=== PATIENT | female | born 1980 | race Caucasian/White ===

== ENCOUNTER 2025-05-24 07:41 | Emergency (ER) | payer BC, SELFPAY ==
--- NOTE | ~2025-05-24 | XR_ITS ---
EXAMINATION: XR LUMBOSACRAL SPINE CLINICAL INFORMATION: back pain COMPARISON: None available. TECHNIQUE: AP and lateral views FINDINGS: Levoconvex curvature. Endplate sclerosis marginal osteophyte formation and decreased intervertebral disc height at L4-5 and to a lesser extent L5-S1. Bilateral facet joint hypertrophy as well as and that on the right side at L4-5 and L5-S1. Spina bifida occulta S1, congenital. No acute cortical disruption. No gross malalignment. Sclerosis and the sacroiliac joints bilaterally. XR/XR lumbar spine 2-3V IMPRESSION: Spondylosis L4-5 and L5-S1 and scoliosis. Electronically signed by: Justino Bridges MD 05/24/2025 08:25 AM EDT
[2025-05-24 07:44] VITALS: BP 142/88; PULSE 88; RESP 12; TEMP 36.5; O2SAT 98; BMI 23.7
--- NOTE | 2025-05-24 08:09 | ED.BACK ---
HPI - Back Pain/Injury General Chief Complaint: Back Pain/Injury Stated Complaint: Back Pain Time Seen by Provider: 05/24/25 08:05 Source: patient Mode of arrival: ambulatory Limitations: no limitations History of Present Illness ED Provider: Jessie SOTO Narrative: Patient seeks medical attention in the emergency department today for evaluation of back pain. She is accompanied by her significant other. She reports today for started she was doing a lot of weeding and yard work bending over and taking care of the yard. She woke up the next day with the back pain. She did think it could be related to this that although. She spent the weekend at a birthday alliance party and doing regular things and every time she went to bed and then got up her pain has progressively worsened. She did seek medical attention at urgent care and was given a prescription for Flexeril but reports no difference for this. She even tried steroids and that still made no difference. She feels like it is going into her right leg. When patient was walking into work this morning she just coughed randomly and as soon as she did she felt like her back seized up even more now hurts to even move it all feels slightly better when she bends forward and takes pressure off her right side. She denies any lower leg weakness. She is without any rashes or falls. Patient denies personal history of cancer, IVDU, fevers, chills, night sweats, unintentional wt loss, saddle anesthesia, and change/loss in bladder/ bowel function. MD elicited complaint: back pain Related Data Previous Rx's ?Medication ?Instructions ?Recorded diazepam 5 mg tablet (Valium) 5 mg PO TID PRN muscle spasm #5 05/24/25 tabs lidocaine 5 % topical patch 1 patch topical DAILY #30 ea 05/24/25 (Lidoderm) Allergies Allergy/AdvReac Type Severity Reaction Status Date / Time No Known Allergies (No Known Allergy Verified 05/24/25 07:49 Allergies*) Review of Systems Review of Systems: Yes all other systems are reviewed and are negative PMFSH Past Medical History Attestation statement: The following information was validated with the patient. Source: old records reviewed, obtained from family and nursing notes reviewed Physical Exam Vital Signs: Vital Signs: Last Vital Signs Temp 97.8 F 05/24/25 09:30 Pulse 67 05/24/25 09:30 Resp 18 05/24/25 09:30 BP 114/70 05/24/25 09:30 Pulse Ox 95 05/24/25 09:30 O2 Del Method Room Air 05/24/25 09:30 BMI result Body Mass Index 23.7 Const: Orientation/consciousness: patient oriented x3 : General: Yes no CVA tenderness Back/Spine/Pelvis: Back: no CVA tenderness Cervical Spine: normal cervical lordosis and cervical ROM normal Thoracic/Lumbar Spine: straight leg raise negative bilaterally, paraspinal muscle tenderness on the right, thoraco-lumbar ROM limited with forward flexion (20 degrees), with lateral flexion to the right (0 degrees), with lateral flexion to the left (15 degrees), with rotation to the right (15 degrees) and with rotation to the left (15 degrees, -5 degrees extension) and tilt present Pelvis: no pain with anterior-posterior compression Skin: General skin exam: no rashes or lesions noted Neuro: General: patient oriented x3 Gait exam (Neuro): Shuffling gait present (secondary to not want to move back) Motor exam (neuro): Motor fasciculations not present and Normal motor muscle tone present throughout Sensory Exam: Normal double simultaneous stimulation for sensation Deep tendon reflexes (DTR's): Right patellar reflex intensity grade: 2+ and Left patellar reflex intensity grade: 2+ Medications Administered Discontinued Medications Generic Name Dose Route Start Last Admin Trade Name Freq PRN Reason Stop Dose Admin Diazepam 2 mg 05/24/25 08:50 05/24/25 08:58 Diazepam 2 Mg Tablet PO 05/24/25 08:51 2 mg ONCE ONE Administration Medical Decision Making Medical Decision Making MDM Narrative: Patient presented to the emergency department today for concerns of back pain. history and physical as above vitals noted This patient presents with back pain most consistent with muscle spasm and lumbar strain. Xrays were ordered from triage to further evaluation. She is well appearing despite appearing uncomfortable she is leaning to her left side. Differential diagnoses includes lumbago versus musculoskeletal spasm / strain versus sciatica vs HNP.No back pain red flags on history or physical. Presentation not consistent with malignancy (lack of history of malignancy, lack of B symptoms), fracture (no trauma, no bony tenderness to palpation), cauda equina (no bowel or urinary incontinence/retention, no saddle anesthesia, no distal weakness), AAA, viscus perforation , pulmonary embolism, renal colic, pyelonephritis (afebrile, no CVAT, no urinary symptoms). Given the clinical picture, no indication for MRI imaging at this time. will be driving her home. NVI. Plan: pain control, supportive care and ortho follow up as indicated Differential Diagnosis Differential Diagnoses: The differential diagnosis associated with the presentation includes See MDM Admission/Observation Consideration of admission/observation: Escalation of care including admission/observation considered Independent Interpretation I performed an independent interpretation of an: Plain X-Ray Interpretation: no acute findings Radiology Impression Discussion of test interpretation with radiology: I have reviewed the radiologist's reading. Independent Historian Clinical information obtained from an independent historian. History obtained from or confirmed by: Spouse Tests considered The following testing was considered but not selected: MRI Prescription Management I considered prescription management with: Pain Medication Discharge Plan Discharge Clinical Impression: Strain of lumbar region, Muscle spasm of back Patient Disposition: Home, Self-Care Instructions: Muscle Spasm (ED) Additional Instructions: You were evaluated for lower back pain in the emergency department today with severe spasm. You had x-rays that show chronic changes of your spine but otherwise no acute findings. FINDINGS: Levoconvex curvature. Endplate sclerosis marginal osteophyte formation and decreased intervertebral disc height at L4-5 and to a lesser extent L5-S1. Bilateral facet joint hypertrophy as well as and that on the right side at L4-5 and L5-S1. Spina bifida occulta S1, congenital. No acute cortical disruption. No gross malalignment. Sclerosis and the sacroiliac joints bilaterally. OVERALL IMPRESSION: Spondylosis L4-5 and L5-S1 and scoliosis. Your symptoms are consistent with a lower back strain/spasm with a pinched nerve. BACK CARE Use Motrin/Advil (ibuprofen) 600 mg every 6 hours. Take this with food. Take this regularly for the next 3-5 days and then as needed. In addition, You can use Tylenol (acetaminophen) 650 mg every 6 hrs as needed for pain. ?Do not take more than 3000 mg in one day! Use intermittent heat 4 or 5 times a day, 20 minutes at a time, ?for a few days. You may use topical therapy such as IcyHot with Lidocaine or Aspercream with Lidocaine, both of which are available over the counter. Do not perform any heavy lifting. Return immediately to the Emergency Department if you develop any increased or uncontrolled pain, numbness, tingling, or weakness of the extremities, difficulty urinating or passing stools. Please see your doctor or an orthopedist if not improving over the next 1-2 weeks. Prescriptions: New diazepam [Valium] 5 mg tablet 5 mg PO TID PRN (Reason: muscle spasm) Qty: 5 0RF lidocaine [Lidoderm] 5 % adhesive patch,medicated 1 patch topical DAILY Qty: 30 0RF Rx Instructions: leave on most painful area for up to 12 hrs Referrals: [facility] [place] Group] Referral Note: consider PT referral Stand Alone Forms: Work/School Release Interventions: ED Discharge Assessment Last Done: 05/24/25 09:30 Discharge Date/Time: 05/24/25 09:31 Print Language: Khmer
--- NOTE | 2025-05-24 08:34 | PC.NURSE ---
Pt reporting she was doing gardening when she reports she started having right side pain, starting over the last couple days the pain has been spreading to her lower back and radiating down her right leg. Pt reporting position changes make it worse, coughing/sneezing making it worse. pt does have L4L5 known issues, she has received injections in the past along with PT but has had no issues for about 5 years.
[2025-05-24 09:17] VITALS: BP 114/70; PULSE 67; RESP 18; O2SAT 95
[2025-05-24 09:30] VITALS: BP 114/70; PULSE 67; RESP 18; TEMP 36.6; O2SAT 95
--- OUTSIDE RECORDS SUMMARY | 2025-05-24 09:41 | XMS_ITS ---
Author Name [facility] Organization Unknown Care Team Organization Name Specialty Phone Email Start Date End Da te [facility] 08/19/20222023
== END 2025-05-24 09:31 | disposition home or self-care (01) ==
LOC: HO.ED 09:19
PROVIDERS: Emergency Provider Emergency Medicine; PCP Internal Medicine
DX: S39.012A Strain of muscle, fascia and tendon of lower back, initial encounter (principal); M62.830 Muscle spasm of back; X58.XXXA Exposure to other specified factors, initial encounter; Y93.9 Activity, unspecified; Y92.9 Unspecified place or not applicable; Y99.8 Other external cause status
CPT/HCPCS: 72100; 99283; 99284

== ENCOUNTER → 2025-05-24 08:00 | Outpatient (BNV) | payer OTHER, SELFPAY | PROVIDERS: Emergency Provider Emergency Medicine; PCP Internal Medicine; Visit Provider Radiology Diagnostic Radiology | DX: M47.817 Spondylosis without myelopathy or radiculopathy, lumbosacral region (principal); M41.86 Other forms of scoliosis, lumbar region | CPT/HCPCS: 72100 ==